=== PATIENT | female | born 1985 | race Two or more races ===

== ENCOUNTER 2017-05-12 11:24 | Emergency (ER) | payer MEDICAID ==
[~2017-05-12] VITALS: Ht 149.9 cm; Wt 72.6 kg
[2017-05-12 11:28] VITALS: BP 120/88
[2017-05-12] MEDS ORDERED: LIDOCAINE HCL/PF 1% 30 ML SDV ONE (11:41)
--- NOTE | 2017-05-12 11:42 | NUR ---
VERBAL ORDER DR MCGRAW LIDOCAINE 1% LEFT AT BEDSIDE FOR MD ADMIN
== END 2017-05-12 12:41 | disposition home or self-care (01) ==
LOC: ER 11:29
DX: L02.211 Cutaneous abscess of abdominal wall (principal)
CPT/HCPCS: 10060; 99283; A4606; A6402; A6407; J3490; Z7610

== ENCOUNTER 2017-12-04 18:13 | Emergency (ER) | payer MEDICAID ==
[~2017-12-04] VITALS: Ht 149.9 cm; Wt 54.4 kg
[2017-12-04] MEDS ORDERED: IV NS 0.9% 1,000 ML BAG IV ONE (19:00)
--- NOTE | 2017-12-04 19:10 | NUR ---
PT DELIO PRESENTS TO ED: PT STATES "MY SUGAR WENT UP TO 500", NO Hx OF DM. PT AOX3 RR EVEN AND UNLABORED. NO SOB NOTED. NAD NOTED. NO NDV AT THIS TIME. PT GOWNED AND PLACED ON MONITOR WAITING FOR MD BOWENS. NO S/S OF HYPERGLYCEMIA AT THIS TIME.
--- NOTE | 2017-12-04 19:27 | NUR ---
IV STARTED ON RIGHT AC 20G, PT MEDICATED ORDERED. DR. RODGERS AT BEDSIDE FOR EVAL.
--- NOTE | 2017-12-04 19:33 | NUR ---
PT MOVED TO ER BED 12. PT AWARE AND WITH ALL BELONGINGS.
--- NOTE | 2017-12-04 19:42 | NUR ---
LAB AT BEDSIDE FOR BLOOD DRAW
[2017-12-04 20:03] LABS: BASOPHILS % (AUTO) 0.4 % (0.0-2.0); EOSINOPHILS # (AUTO) 0.1 /CMM (0.0-0.7); EOSINOPHILS % (AUTO) 1.4 % (0.0-6.0); HEMATOCRIT 40 % (33-45); HEMOGLOBIN 14.3 g/dL (11.5-14.8); LYMPHOCYTES # (AUTO) 1.9 /CMM (0.8-4.8); LYMPHOCYTES % (AUTO) 33.7 % (20.0-44.0); MEAN CORPUSCULAR HEMOGLOBIN 34 PG (26.0-33.0); MEAN CORPUSCULAR HGB CONC 36 g/dl (31.0-36.0); MEAN CORPUSCULAR VOLUME 95 fL (82-100); MONOCYTES # (AUTO) 0.4 /CMM (0.1-1.30); MONOCYTES % (AUTO) 6.7 % (2.0-12.0); NEUTROPHILS # (AUTO) 3.2 /CMM (1.8-8.9); NEUTROPHILS % (AUTO) 57.8 % (43.0-81.0); PLATELET COUNT (AUTO) 242 /CMM (150-450); RDW COEFFICIENT OF VARIATION 11.1 (11.5-15.0); WHITE BLOOD COUNT (AUTO) 5.6 K/uL (4.3-11.0)
[2017-12-04 20:08] LABS: APPEARANCE,URINE CLEAR (CLEAR); BILIRUBIN,URINE NEGATIVE (NEGATIVE); BLOOD, URINE 2+ Ery/uL (NEGATIVE); COLOR,URINE YELLOW (YELLOW); KETONES,URINE NEGATIVE (NEGATIVE); LEUKOCYTE ESTERASE ,URINE NEGATIVE (NEGATIVE); NITRITE, URINE NEGATIVE (NEGATIVE); PROTEIN,URINE NEGATIVE (NEGATIVE); UGLUCOSE 3+ mg/dL (NEGATIVE); UROBILINOGEN,URINE 0.2 EU/dL (0.2)
[2017-12-04 20:19] LABS: CALCIUM, SERUM 9.2 mg/dL (8.5-10.1); CREATININE 0.5 mg/dL (0.6-1.3); POTASSIUM 3.7 mmol/L (3.5-5.1)
[2017-12-04 20:28] LABS: BACTERIA,URINE Few /HPF (None Seen); SQUAMOUS EPITHELIAL CELL,UR Few /HPF (None Seen); WBC,URINE 0-2 /HPF (0-3)
[2017-12-04 20:29] LABS: YEAST,URINE Rare /HPF (None Seen)
[2017-12-04] MEDS ORDERED: INSULIN ASPART/LISPRO 100 UNIT/ML CARTRIDGE SQ STA (20:36)
--- NOTE | 2017-12-04 20:54 | NUR ---
CALLED PHARM FOR MEDICATION.
--- NOTE | 2017-12-04 21:05 | NUR ---
WITNESSED RN KITTY PULL INSULIN AND DRAW UP MEDICATION. CORRECT AMOUNT ADMINISTERED
--- NOTE | 2017-12-04 21:52 | NUR ---
IV removed. Catheter intact and site benign. Pressure and 4x4 applied to site. No bleeding noted. Patient discharged to home in stable condition. Written and verbal after care instructions given. Patient verbalizes understanding of instruction. ambulatory with a steady gait
[2017-12-04 21:53] VITALS: BP 118/77
== END 2017-12-04 21:53 | disposition home or self-care (01) ==
LOC: ER 18:17
DX: E11.9 Type 2 diabetes mellitus without complications (principal); Z79.4 Long term (current) use of insulin; Z90.49 Acquired absence of other specified parts of digestive tract
CPT/HCPCS: 36415; 80048-TC; 81000-TC; 82962-TC; 84703-TC; 85025-TC; A4606; J1815; J7030; Z7610